=== PATIENT | male | born 1975 | race Caucasian/White ===

== ENCOUNTER → 2021-01-28 12:10 | Outpatient (CLI) | payer BC, SELFPAY ==
[2021-01-29 17:17] LABS: Cancer (Carbohydrate) Ag 19-9 5 U/mL (0-35)
== END ==
PROVIDERS: PCP Physician Assistant Medical; Visit Provider Transplant Surgery
DX: C25.9 Malignant neoplasm of pancreas, unspecified (principal)
CPT/HCPCS: 86301

== ENCOUNTER → 2021-07-10 08:47 | Outpatient (CLI) | payer OTHER, SELFPAY ==
--- NOTE | 2021-07-10 09:45 | DI.CT.S_ITS ---
PROCEDURE: CT CHEST ABD PEL W CON INDICATIONS: Malignant neoplasm of pancreas, unspecified TECHNIQUE: After the administration of oral and intravenous contrast, axial sections acquired from the supraclavicular neck to the pubic symphysis. Coronal and sagittal reformats were performed. For radiation dose reduction, the following was used: automated exposure control, adjustment of mA and/or kV according to patient size. COMPARISON:None. FINDINGS: Image quality: Excellent. CHEST: Lower Neck: No enlarged lymph nodes. Thyroid: Within normal limits. Axillae: No enlarged lymph nodes. Chest Wall: Unremarkable. Lungs and Airways: Occasional tiny left lung subpleural nodules are stable, the largest measures 2.5 mm, ( 3/262). Pleura: Focal pleural thickening along the right diaphragmatic surface with intrinsic dystrophic calcifications is stable. No pneumothorax or pleural effusions. Heart: Heart size is normal. No pericardial effusion. Thoracic Vessels: The aorta and pulmonary arteries demonstrate normal size. Mediastinum and Mary [place]: No enlarged lymph nodes. Small amount of rebound thymic tissue is seen. Esophagus: No wall thickening. No hiatal hernia. ABDOMEN: Liver: No suspicious mass. Gallbladder: Surgically absent. Biliary ducts: No biliary dilatation. Trace left lobe pneumobilia. Pancreas: Prior Whipple procedure. Body and tail of the pancreas are normal. No ductal dilatation. No peripancreatic fluid collections. Spleen: 1.4 cm peripherally hypervascular lesion in the lower pole of the spleen, similar compared to prior studies. Tiny cyst in the upper pole of the spleen. Adrenal Glands: No masses. Kidneys and Ureters: Normal enhancement. No hydronephrosis or mass. Stomach and Bowel: There is been a Whipple procedure. Anastomoses appear normal. No bowel obstructions. Peritoneum: No abnormal intraperitoneal fluid. No free air. Ventral Wall: No hernia. Abdominal Nodes: No retroperitoneal or mesenteric adenopathy by size criteria. Mild abdominal aortic atherosclerotic calcification. Vessels: Aorta and inferior vena cava are normal in size. PELVIS: Pelvic Organs: Unremarkable. Bladder: Unremarkable. Pelvic Nodes: No enlarged lymph nodes. Miscellaneous: Small fat containing inguinal hernias bilaterally. Bones: Unremarkable. IMPRESSION: 1. No progression of metastatic disease. 2. Stable 1.4 cm hypervascular splenic lesion. 3. Very small left lung nodules, probably granulomas, stable. Dictated by: Cecelia Marcano M.D. on 07/13/2021 at 16:55 Approved by: Cecelia Marcano M.D. on 07/13/2021 at 17:18
[2021-07-10 10:40] LABS: Add Manual Diff / Slide Review NO; Basophils Absolute Auto 0 /uL (0-100); Basophils Percent Auto 0.3 % (0-2); Eosinophils Absolute Auto 100 /uL (0-450); Eosinophils Percent Auto 2.6 % (2-4); Hematocrit 39.7 % (41-53); Hemoglobin 13.7 g/dL (13.5-17.5); Lymphocytes Absolute Auto 1400 /uL (1100-4500); Lymphocytes Percent Auto 35.2 % (25-40); Mean Corpuscular HGB Conc 34.4 % (30-36); Mean Corpuscular Hemoglobin 29.6 PG (26-34); Mean Corpuscular Volume 86.1 fL (80-100); Monocytes Absolute Auto 400 /uL (0-900); Monocytes Percent Auto 10.4 % (3-14); Neutrophils Absolute Auto 2000 /uL (1500-7000); Neutrophils Percent Auto 51.5 % (50-75); Platelet Count 186 X10^3/uL (150-400); Red Blood Cell Count 4.62 X10^6/uL (4.5-5.9); Red Cell Distribution Width 13.6 % (11.6-14.8); White Blood Cell Count 3.9 X10^3/uL (4.5-11.0)
[2021-07-10 10:59] LABS: Alanine Aminotransferase 29 IU/L (<50); Albumin 3.9 g/dL (3.5-5.0); Albumin Globulin Ratio 1.7 (1.0-2.8); Alkaline Phosphatase 60 U/L (38-126); Aspartate Aminotransferase 27 IU/L (17-59); Bilirubin Total 0.3 mg/dL (0.2-1.3); Blood Urea Nitrogen 18 mg/dL (9-20); Calcium 8.8 mg/dL (8.4-10.2); Carbon Dioxide 27 mmol/L (22-32); Chloride 104 mmol/L (98-107); Estimated Glomerular Filt Rate > 60.0 mL/min (>60); Globulin 2.3 g/dL (1.7-4.1); Glucose 78 mg/dL (70-100); HEMOLYSIS < 15 (0-50); Potassium 4.3 mmol/L (3.4-5.1); Sodium 138 mmol/L (137-145); Total Protein 6.2 g/dL (6.3-8.2)
[2021-07-11 13:10] LABS: Cancer (Carbohydrate) Ag 19-9 7 U/mL (0-35)
== END ==
PROVIDERS: Referring Provider Transplant Surgery; Visit Provider Transplant Surgery
DX: C25.9 Malignant neoplasm of pancreas, unspecified (principal); R91.8 Other nonspecific abnormal finding of lung field; D73.9 Disease of spleen, unspecified; Z90.49 Acquired absence of other specified parts of digestive tract
CPT/HCPCS: 36415; 71260; 74177; 80053; 85025; 86301

== ENCOUNTER → 2021-08-05 08:24 | Outpatient (CLI) | payer OTHER, SELFPAY ==
[2021-08-05 20:35] LABS: COVID19 - ORCAS (NP or Nasal) Negative (Negative)
== END ==
PROVIDERS: Visit Provider Physician Assistant
DX: J06.9 Acute upper respiratory infection, unspecified (principal)
CPT/HCPCS: U0003

== ENCOUNTER → 2021-10-01 08:06 | Outpatient (CLI) | payer OTHER, SELFPAY ==
[2021-10-01 19:29] LABS: Hemoglobin A1C% w Est Avg Glu 5.5 % (4.0-6.0)
[2021-10-01 19:31] LABS: Cholesterol 236 mg/dL (140-199); HDL Cholesterol 44 mg/dL (40-60); LDL Cholesterol Calculated 172 mg/dL (<100); Triglycerides 100 mg/dL (35-150)
== END ==
PROVIDERS: PCP Physician Assistant
DX: M62.81 Muscle weakness (generalized) (principal)
CPT/HCPCS: 80061; 82306; 83036

== ENCOUNTER → 2022-01-13 13:43 | Outpatient (CLI) | payer OTHER, SELFPAY ==
[2022-01-13 19:36] LABS: Alanine Aminotransferase 106 IU/L (<50); Albumin 4.4 g/dL (3.5-5.0); Albumin Globulin Ratio 1.7 (1.0-2.8); Alkaline Phosphatase 130 U/L (38-126); Aspartate Aminotransferase 41 IU/L (17-59); BUN Creatinine Ratio 24.7 (6-22); Bilirubin Total 0.7 mg/dL (0.2-1.3); Blood Urea Nitrogen 20 mg/dL (9-20); Calcium 9.1 mg/dL (8.4-10.2); Carbon Dioxide 27 mmol/L (22-32); Chloride 104 mmol/L (98-107); Estimated Glomerular Filt Rate > 60 mL/min (>60); Globulin 2.6 g/dL (1.7-4.1); Glucose 107 mg/dL (70-100); HEMOLYSIS < 15 (0-50); Potassium 4.3 mmol/L (3.4-5.1); Sodium 138 mmol/L (137-145)
== END ==
PROVIDERS: PCP Family Medicine; Visit Provider Family Medicine
DX: C25.0 Malignant neoplasm of head of pancreas (principal)
CPT/HCPCS: 80053

== ENCOUNTER → 2022-02-03 12:08 | Outpatient (CLI) | payer OTHER, SELFPAY ==
[2022-02-03 19:44] LABS: Add Manual Diff / Slide Review YES; Hematocrit 37.2 % (41-53); Hemoglobin 12.4 g/dL (13.5-17.5); Mean Corpuscular HGB Conc 33.3 % (30-36); Mean Corpuscular Hemoglobin 29.1 PG (26-34); Mean Corpuscular Volume 87.5 fL (80-100); Platelet Count 674 X10^3/uL (150-400); Red Blood Cell Count 4.25 X10^6/uL (4.5-5.9); Red Cell Distribution Width 15.9 % (11.6-14.8); White Blood Cell Count 15.3 X10^3/uL (4.5-11.0)
[2022-02-03 19:50] LABS: Alanine Aminotransferase 85 IU/L (<50); Albumin 4.2 g/dL (3.5-5.0); Albumin Globulin Ratio 1.8 (1.0-2.8); Alkaline Phosphatase 120 U/L (38-126); Aspartate Aminotransferase 46 IU/L (17-59); BUN Creatinine Ratio 18.9 (6-22); Bilirubin Total 0.3 mg/dL (0.2-1.3); Blood Urea Nitrogen 14 mg/dL (9-20); Calcium 9.4 mg/dL (8.4-10.2); Carbon Dioxide 25 mmol/L (22-32); Chloride 102 mmol/L (98-107); Estimated Glomerular Filt Rate > 60 mL/min (>60); Globulin 2.4 g/dL (1.7-4.1); Glucose 126 mg/dL (70-100); HEMOLYSIS 17 (0-50); Potassium 4.8 mmol/L (3.4-5.1); Sodium 139 mmol/L (137-145); Total Protein 6.6 g/dL (6.3-8.2)
[2022-02-03 20:16] LABS: Anisocytosis 1+; Neutrophils Absolute Manual 10557 /uL (3000-5900); Total Cells Counted 100
== END ==
PROVIDERS: PCP Family Medicine; Visit Provider Internal Medicine Hematology & Oncology
DX: C25.0 Malignant neoplasm of head of pancreas (principal)
CPT/HCPCS: 80053; 85007; 85025

== ENCOUNTER → 2022-02-10 13:36 | Outpatient (CLI) | payer OTHER, SELFPAY ==
[2022-02-10 20:47] LABS: Add Manual Diff / Slide Review NO; Basophils Absolute Auto 0 /uL (0-100); Basophils Percent Auto 0.9 % (0-2); Eosinophils Absolute Auto 100 /uL (0-450); Eosinophils Percent Auto 3.3 % (2-4); Hematocrit 36.6 % (41-53); Hemoglobin 12.3 g/dL (13.5-17.5); Lymphocytes Absolute Auto 1000 /uL (1100-4500); Lymphocytes Percent Auto 27.8 % (25-40); Mean Corpuscular HGB Conc 33.7 % (30-36); Mean Corpuscular Hemoglobin 29.4 PG (26-34); Mean Corpuscular Volume 87.3 fL (80-100); Monocytes Absolute Auto 100 /uL (0-900); Neutrophils Absolute Auto 2500 /uL (1500-7000); Platelet Count 233 X10^3/uL (150-400); Red Blood Cell Count 4.19 X10^6/uL (4.5-5.9); Red Cell Distribution Width 15.6 % (11.6-14.8); White Blood Cell Count 3.7 X10^3/uL (4.5-11.0)
[2022-02-10 20:49] LABS: Alanine Aminotransferase 103 IU/L (<50); Albumin 4.2 g/dL (3.5-5.0); Albumin Globulin Ratio 1.7 (1.0-2.8); Alkaline Phosphatase 89 U/L (38-126); Aspartate Aminotransferase 41 IU/L (17-59); BUN Creatinine Ratio 21.3 (6-22); Bilirubin Total 0.5 mg/dL (0.2-1.3); Blood Urea Nitrogen 19 mg/dL (9-20); Calcium 9.1 mg/dL (8.4-10.2); Carbon Dioxide 28 mmol/L (22-32); Chloride 103 mmol/L (98-107); Estimated Glomerular Filt Rate > 60 mL/min (>60); Globulin 2.5 g/dL (1.7-4.1); Glucose 95 mg/dL (70-100); HEMOLYSIS < 15 (0-50); Potassium 4.4 mmol/L (3.4-5.1); Sodium 140 mmol/L (137-145); Total Protein 6.7 g/dL (6.3-8.2)
== END ==
PROVIDERS: PCP Family Medicine; Visit Provider Internal Medicine Hematology & Oncology
DX: C25.0 Malignant neoplasm of head of pancreas (principal)
CPT/HCPCS: 80053; 85025

== ENCOUNTER → 2022-02-24 12:02 | Outpatient (CLI) | payer OTHER, SELFPAY ==
[2022-02-24 19:39] LABS: Alanine Aminotransferase 66 IU/L (<50); Albumin Globulin Ratio 1.6 (1.0-2.8); Alkaline Phosphatase 101 U/L (38-126); Aspartate Aminotransferase 32 IU/L (17-59); BUN Creatinine Ratio 27.1 (6-22); Bilirubin Total 0.3 mg/dL (0.2-1.3); Blood Urea Nitrogen 19 mg/dL (9-20); Carbon Dioxide 26 mmol/L (22-32); Chloride 103 mmol/L (98-107); Estimated Glomerular Filt Rate > 60 mL/min (>60); Globulin 2.5 g/dL (1.7-4.1); Glucose 102 mg/dL (70-100); HEMOLYSIS 19 (0-50); Potassium 4.6 mmol/L (3.4-5.1); Sodium 138 mmol/L (137-145); Total Protein 6.5 g/dL (6.3-8.2)
[2022-02-24 19:44] LABS: Add Manual Diff / Slide Review NO; Basophils Absolute Auto 0 /uL (0-100); Basophils Percent Auto 0.5 % (0-2); Eosinophils Absolute Auto 300 /uL (0-450); Eosinophils Percent Auto 4.4 % (2-4); Hematocrit 34.3 % (41-53); Hemoglobin 11.6 g/dL (13.5-17.5); Lymphocytes Absolute Auto 1000 /uL (1100-4500); Lymphocytes Percent Auto 16.8 % (25-40); Mean Corpuscular HGB Conc 33.7 % (30-36); Mean Corpuscular Hemoglobin 30.4 PG (26-34); Mean Corpuscular Volume 90.1 fL (80-100); Monocytes Absolute Auto 800 /uL (0-900); Monocytes Percent Auto 13.3 % (3-14); Neutrophils Absolute Auto 3700 /uL (1500-7000); Platelet Count 210 X10^3/uL (150-400); Red Blood Cell Count 3.81 X10^6/uL (4.5-5.9); Red Cell Distribution Width 19.7 % (11.6-14.8); White Blood Cell Count 5.8 X10^3/uL (4.5-11.0)
== END ==
PROVIDERS: PCP Family Medicine; Visit Provider Internal Medicine Hematology & Oncology
DX: C25.0 Malignant neoplasm of head of pancreas (principal)
CPT/HCPCS: 80053; 85025

== ENCOUNTER → 2022-03-03 13:11 | Outpatient (CLI) | payer OTHER, SELFPAY ==
[2022-03-03 19:16] LABS: Hematocrit 37.4 % (41-53); Hemoglobin 12.6 g/dL (13.5-17.5); Mean Corpuscular HGB Conc 33.6 % (30-36); Mean Corpuscular Hemoglobin 30.2 PG (26-34); Mean Corpuscular Volume 89.7 fL (80-100); Platelet Count 469 X10^3/uL (150-400); Red Blood Cell Count 4.17 X10^6/uL (4.5-5.9); Red Cell Distribution Width 19.5 % (11.6-14.8); White Blood Cell Count 11.9 X10^3/uL (4.5-11.0)
[2022-03-03 19:19] LABS: Add Manual Diff / Slide Review YES
[2022-03-03 19:34] LABS: Alanine Aminotransferase 121 IU/L (<50); Albumin 4.3 g/dL (3.5-5.0); Albumin Globulin Ratio 1.7 (1.0-2.8); Alkaline Phosphatase 162 U/L (38-126); Aspartate Aminotransferase 50 IU/L (17-59); BUN Creatinine Ratio 25.6 (6-22); Bilirubin Total 0.3 mg/dL (0.2-1.3); Blood Urea Nitrogen 20 mg/dL (9-20); Calcium 9.4 mg/dL (8.4-10.2); Carbon Dioxide 26 mmol/L (22-32); Chloride 103 mmol/L (98-107); Estimated Glomerular Filt Rate > 60 mL/min (>60); Globulin 2.5 g/dL (1.7-4.1); Glucose 116 mg/dL (70-100); HEMOLYSIS < 15 (0-50); Potassium 4.7 mmol/L (3.4-5.1); Sodium 139 mmol/L (137-145); Total Protein 6.8 g/dL (6.3-8.2)
[2022-03-03 19:53] LABS: Neutrophils Absolute Manual 8806 /uL (3000-5900); Total Cells Counted 100
[2022-03-03 19:54] LABS: RBC Morphology Normal Morphology
== END ==
PROVIDERS: PCP Family Medicine; Visit Provider Internal Medicine Hematology & Oncology
DX: C25.0 Malignant neoplasm of head of pancreas (principal)
CPT/HCPCS: 80053; 85007; 85025

== ENCOUNTER → 2022-03-10 13:39 | Outpatient (CLI) | payer OTHER, SELFPAY ==
[2022-03-10 19:59] LABS: Alanine Aminotransferase 78 IU/L (<50); Albumin 4.2 g/dL (3.5-5.0); Albumin Globulin Ratio 1.8 (1.0-2.8); Alkaline Phosphatase 176 U/L (38-126); Aspartate Aminotransferase 33 IU/L (17-59); Bilirubin Total 0.4 mg/dL (0.2-1.3); Blood Urea Nitrogen 17 mg/dL (9-20); Calcium 8.7 mg/dL (8.4-10.2); Carbon Dioxide 27 mmol/L (22-32); Chloride 103 mmol/L (98-107); Estimated Glomerular Filt Rate > 60 mL/min (>60); Globulin 2.3 g/dL (1.7-4.1); Glucose 88 mg/dL (70-100); HEMOLYSIS < 15 (0-50); Potassium 4.2 mmol/L (3.4-5.1); Sodium 139 mmol/L (137-145); Total Protein 6.5 g/dL (6.3-8.2)
[2022-03-10 20:01] LABS: Hematocrit 34.8 % (41-53); Mean Corpuscular HGB Conc 34.3 % (30-36); Mean Corpuscular Hemoglobin 30.7 PG (26-34); Mean Corpuscular Volume 89.4 fL (80-100); Platelet Count 185 X10^3/uL (150-400); Red Cell Distribution Width 19.2 % (11.6-14.8); White Blood Cell Count 22.8 X10^3/uL (4.5-11.0)
[2022-03-10 20:02] LABS: Add Manual Diff / Slide Review YES
[2022-03-10 20:45] LABS: Anisocytosis 2+; Neutrophils Absolute Manual 20976 /uL (3000-5900); Total Cells Counted 100
== END ==
PROVIDERS: PCP Family Medicine; Visit Provider Internal Medicine Hematology & Oncology
DX: C25.0 Malignant neoplasm of head of pancreas (principal)
CPT/HCPCS: 80053; 85007; 85025

== ENCOUNTER 2022-03-26 14:03 | Emergency (ER) | payer OTHER, SELFPAY ==
[2022-03-26] VITALS (8 sets, daily range): BP systolic 99–105; BP diastolic 64–70; PULSE 74–93; RESP 20; TEMP 36.7–36.9; O2SAT 94–97; BMI 22.6
--- NOTE | 2022-03-26 14:26 | PC.NURSE ---
WEnt to bring pt into triage,he was sitting in his car. I moved on to next pt and registration was going to tell him to come in as he was next.
--- NOTE | 2022-03-26 14:42 | DI.CT.S_ITS ---
PROCEDURE: CT ANGIO CHEST PE PROTOCOL INDICATIONS: concern for PE, known pancreatic ca, pod #4 ex-lap TECHNIQUE: After the administration of intravenous contrast, 2 mm thick sections acquired from the pulmonary apices to the posterior costophrenic angles. 3-dimensional maximum intensity projection (MIP) coronal and sagittal reformats were then acquired through the thorax. For radiation dose reduction, the following was used: automated exposure control, adjustment of mA and/or kV according to patient size. COMPARISON: Outside Film, CT, CT CHEST ABDOMEN PELVIS WITH CONTRAST, 10/07/2021, 11:20. FINDINGS: Image quality: Excellent. Pulmonary arteries: Pulmonary arteries are normal in size, and demonstrate no intraluminal filling defects to suggest central pulmonary embolism. Lungs and pleura: There are subtle patchy areas of ground-glass opacities involving the medial aspect of the bilateral lower lobes, right middle lobe, and bilateral lung apices. No septal thickening or nodularity. A few small subpleural pulmonary nodules are more conspicuous and minimally larger in size. This may be related to differences in imaging technique with 1.0 mm slice thickness on today's study versus 3.0 mm on previous exam. For example subpleural left upper lobe nodule seen on image 96/series 5 measures approximately 2-3 mm and 3-4 mm nodule in the subpleural left lower lobe (image 239/series 5) which previously measured approximately 4 mm but was less conspicuous. No pleural effusions or pneumothorax. Central and peripheral airways are patent. Stable appearance of calcified pleural plaque in the right lung base. Mediastinum: Heart size is normal, without pericardial effusion. No mediastinal or hilar adenopathy. Several scattered mediastinal lymph nodes are more notable for number rather than size and likely reactive in etiology. Thoracic aorta is normal in caliber and enhancement. Esophagus is normal in caliber, without hiatal hernia. Bones and chest wall: No suspicious bony lesions. Ribs and thoracic spine appear intact throughout. Thyroid gland is unremarkable. No axillary or supraclavicular adenopathy. Abdomen: Partially imaged postsurgical changes of prior Whipple procedure. Remainder of the visualized upper abdominal solid organs and bowel loops appear unremarkable. IMPRESSION: 1. Negative for acute pulmonary emboli. No evidence for acute right-sided heart strain. 2. Subtle patchy ill-defined ground-glass opacities involving the bilateral lung apices, right middle lobe, and medial bilateral lower lobes with suspected mildly reactive mediastinal lymph nodes. Findings are likely related to an infectious or inflammatory process. No focal consolidation seen. 3. Slight interval increase in size versus prominence of several small bilateral pulmonary nodules. These have not demonstrated significant increase in size but appear more conspicuous. This may be in part be related to differences in imaging technique. Consider follow-up CT chest in 6-12 months. Other chronic findings as above. Dictated by: Jas Medel M.D. on 03/26/2022 at 15:21 Approved by: Jas Medel M.D. on 03/26/2022 at 15:35
[2022-03-26 15:09] LABS: INR 1.2 (0.9-1.3); Prothrombin Time 13.7 SECONDS (10.1-12.7)
[2022-03-26 15:24] LABS: Lactate (Lactic Acid) 0.7 mmol/L (0.7-2.1)
[2022-03-26 15:24] LABS: Alanine Aminotransferase 71 IU/L (<50); Albumin Globulin Ratio 1.2 (1.0-2.8); Alkaline Phosphatase 158 U/L (38-126); Aspartate Aminotransferase 36 IU/L (17-59); BUN Creatinine Ratio 23.1 (6-22); Bilirubin Total 0.5 mg/dL (0.2-1.3); Blood Urea Nitrogen 18 mg/dL (9-20); Calcium 8.9 mg/dL (8.4-10.2); Carbon Dioxide 26 mmol/L (22-32); Chloride 105 mmol/L (98-107); Estimated Glomerular Filt Rate > 60 mL/min (>60); Globulin 3.3 g/dL (1.7-4.1); Glucose 121 mg/dL (70-100); Potassium 3.9 mmol/L (3.4-5.1); Sodium 138 mmol/L (137-145); Total Protein 7.3 g/dL (6.3-8.2)
[2022-03-26 15:26] LABS: Add Manual Diff / Slide Review NO; Basophils Absolute Auto 0 /uL (0-100); Basophils Percent Auto 0.6 % (0-2); Eosinophils Absolute Auto 200 /uL (0-450); Eosinophils Percent Auto 3.9 % (2-4); Hematocrit 35.1 % (41-53); Hemoglobin 11.6 g/dL (13.5-17.5); Lymphocytes Absolute Auto 800 /uL (1100-4500); Lymphocytes Percent Auto 15.1 % (25-40); Mean Corpuscular Hemoglobin 29.9 PG (26-34); Mean Corpuscular Volume 90.4 fL (80-100); Monocytes Absolute Auto 800 /uL (0-900); Monocytes Percent Auto 16.8 % (3-14); Neutrophils Absolute Auto 3200 /uL (1500-7000); Neutrophils Percent Auto 63.6 % (50-75); Platelet Count 774 X10^3/uL (150-400); Red Blood Cell Count 3.88 X10^6/uL (4.5-5.9); Red Cell Distribution Width 19.1 % (11.6-14.8)
[2022-03-26 15:30] LABS: HEMOLYSIS < 15 (0-50)
[2022-03-26 15:35] LABS: Influenza A - CEPHEID Flu A NEGATIVE (NEGATIVE); Influenza B - CEPHEID Flu B NEGATIVE (NEGATIVE); Respiratory Syncytial Virus Negative (Negative)
[2022-03-26 15:37] LABS: NT-proBNP (BNP-Adult 18+) 60 pg/mL (<125); Troponin I < 0.012 ng/mL (0.01-0.034)
[2022-03-26 15:53] LABS: COVID-19 CEPHEID 4-PLEX PCR Negative (Negative)
[2022-03-26 17:45] LABS: Platelet Estimate Increased on smear; RBC Morphology Normal Morphology
--- NOTE | 2022-03-26 18:50 | ED.GENADULT ---
HPI - General Adult General Chief complaint: Shortness of Breath/Dyspnea Stated complaint: PCP refer need CT pulmonary embolism x4 Time Seen by Provider: 03/26/22 14:42 Source: patient Mode of arrival: Ambulatory History of Present Illness HPI narrative: 46-year-old gentleman with history of pancreatic cancer lives in the [facility] seen by his primary care provider earlier today with shortness of breath, he does have a history of pulmonary emboli in the past so was sent for further evaluation of his dyspnea and concern for pulmonary embolism. Patient is 4 days post exploratory laparoscomy secondary to his cancer diagnosis. Will last 48 hours He has had some dyspnea on exertion when walking but not when lying flat. Some pain at the surgical site with deep breathing but no pleuritic type chest pain. He is not complaining of overt chest pain or palpitations. Has noticed lower extremity edema. Not complaining of headaches. Related Data Previous Rx's Medication Instructions Recorded doxycycline hyclate 100 mg capsule 100 mg PO BID #20 caps 03/26/22 levofloxacin 500 mg tablet 500 mg PO DAILY #10 tabs 03/26/22 Allergies Allergy/AdvReac Type Severity Reaction Status Date / Time No Known Drug Allergies Allergy Verified 03/26/22 14:32 Review of Systems Review of Systems Narrative: Remainder of complete review of systems is otherwise unremarkable except for that included in the HPI. Patient History Medical History (Updated 03/26/22 @ 20:58 by Alfreda Knott MD) Pancreatic cancer Social History Smoking Status: Never smoker Smoking Status: Never smoker alcohol intake frequency: holidays/special occasions only Substance Use Type: does not use Exam Initial Vital Signs Initial Vital Signs: Vital Signs Temperature 98.0 F 03/26/22 14:32 Pulse Rate 93 H 03/26/22 14:32 Respiratory Rate 20 03/26/22 14:32 Blood Pressure 105/70 03/26/22 14:32 Pulse Oximetry 97 03/26/22 14:32 Oxygen Delivery Method 03/26/22 14:32 General: Somewhat thin but overall Healthy appearing, in no acute distress. Able to give a complete and coherent history. Well-nourished well-developed HEENT: Moist mucous membranes, normal sclera with reactive pupils, Neck: No JVD, supple Respiratory: Lungs are clear to auscultation, no wheezing no rales no rhonchi. Full and symmetrical air movement Cardiac: Regular rate and rhythm no murmurs no bruits Abdomen: Soft, nontender, good bowel tones, no flank pain Skin: Slightly pale but otherwise Warm and dry, no rashes Neurologic: Grossly neurologically intact with no obvious asymmetries or abnormalities Extremities: No trauma, well perfused Psych: Cooperative, appropriate insight and affect Course Orders Ordered: ED Orders 03/26/22 14:35 Comprehensive Metabolic Panel Stat Covid-19 + FLU A/B + RSV - PCR Stat NT-proBNP (BNP-Adult 18+) Stat Troponin I Stat EKG-12 Lead Stat Measure peak expiratory flow ONCE RT Consult Eval and Treat NOW 03/26/22 14:42 CT angio chest PE protocol Stat 03/26/22 14:45 Complete Blood Count AUTO DIFF Stat Lactate (Lactic Acid) Stat Prothrombin Time INR Stat Vital Signs Vital signs: Vital Signs - 8 hr 03/26/22 14:32 03/26/22 17:23 03/26/22 18:51 Temperature 98.0 F 98.5 F 98.3 F Pulse Rate 93 H 87 80 Respiratory Rate 20 Blood Pressure 105/70 99/64 Pulse Oximetry 97 96 94 Oxygen Delivery Method Room Air Room Air Medical Decision Making Lab Data Result diagrams: 03/26/22 14:45 03/26/22 14:35 Labs: Lab Results 03/26/22 03/26/22 03/26/22 Range/Units 14:35 14:35 14:45 WBC 5.0 (4.5-11.0) X10^3/uL RBC 3.88 L (4.5-5.9) X10^6/uL Hgb 11.6 L (13.5-17.5) g/dL Hct 35.1 L (41-53) % MCV 90.4 (80-100) fL MCH 29.9 (26-34) PG MCHC 33.0 (30-36) % RDW 19.1 H (11.6-14.8) % Plt Count 774 H (150-400) X10^3/uL Neut % (Auto) 63.6 (50-75) % Lymph % (Auto) 15.1 L (25-40) % Cavalier % (Auto) 16.8 H (3-14) % Eos % (Auto) 3.9 (2-4) % Baso % (Auto) 0.6 (0-2) % Neut # (Auto) 3200 (0634-7311) /uL Lymph # (Auto) 800 L (0358-4940) /uL Cavalier # (Auto) 800 (0-900) /uL Eos # (Auto) 200 (0-450) /uL Baso # (Auto) 0 (0-100) /uL Platelet Estimate Increased on smear RBC Morphology Normal morphology PT (10.1-12.7) SECONDS INR (0.9-1.3) Sodium 138 (137-145) mmol/L Potassium 3.9 (3.4-5.1) mmol/L Chloride 105 (98-107) mmol/L Carbon Dioxide 26 (22-32) mmol/L BUN 18 (9-20) mg/dL Creatinine 0.78 (0.66-1.25) mg/dL Estimated GFR > 60 (>60) mL/min BUN/Creatinine Ratio 23.1 H (6-22) Glucose 121 H (70-100) mg/dL Lactate (0.7-2.1) mmol/L Calcium 8.9 (8.4-10.2) mg/dL Total Bilirubin 0.5 (0.2-1.3) mg/dL AST 36 (17-59) IU/L ALT 71 H (<50) IU/L Alkaline Phosphatase 158 H (38-126) U/L Troponin I < 0.012 (0.01-0.034) ng/mL NT-Pro-B Natriuret Pep 60 (<125) pg/mL Total Protein 7.3 (6.3-8.2) g/dL Albumin 4.0 (3.5-5.0) g/dL Globulin 3.3 (1.7-4.1) g/dL Albumin/Globulin Ratio 1.2 (1.0-2.8) SARS-CoV-2 (PCR) Negative (Negative) Influenza A (RT-PCR) Flu a negative (NEGATIVE) Influenza B (RT-PCR) Flu b negative (NEGATIVE) RSV (PCR) Negative (Negative) 03/26/22 03/26/22 Range/Units 14:45 14:45 WBC (4.5-11.0) X10^3/uL RBC (4.5-5.9) X10^6/uL Hgb (13.5-17.5) g/dL Hct (41-53) % MCV (80-100) fL MCH (26-34) PG MCHC (30-36) % RDW (11.6-14.8) % Plt Count (150-400) X10^3/uL Neut % (Auto) (50-75) % Lymph % (Auto) (25-40) % Cavalier % (Auto) (3-14) % Eos % (Auto) (2-4) % Baso % (Auto) (0-2) % Neut # (Auto) (1383-2419) /uL Lymph # (Auto) (2052-9602) /uL Cavalier # (Auto) (0-900) /uL Eos # (Auto) (0-450) /uL Baso # (Auto) (0-100) /uL Platelet Estimate RBC Morphology PT 13.7 H (10.1-12.7) SECONDS INR 1.2 (0.9-1.3) Sodium (137-145) mmol/L Potassium (3.4-5.1) mmol/L Chloride (98-107) mmol/L Carbon Dioxide (22-32) mmol/L BUN (9-20) mg/dL Creatinine (0.66-1.25) mg/dL Estimated GFR (>60) mL/min BUN/Creatinine Ratio (6-22) Glucose (70-100) mg/dL Lactate 0.7 (0.7-2.1) mmol/L Calcium (8.4-10.2) mg/dL Total Bilirubin (0.2-1.3) mg/dL AST (17-59) IU/L ALT (<50) IU/L Alkaline Phosphatase (38-126) U/L Troponin I (0.01-0.034) ng/mL NT-Pro-B Natriuret Pep (<125) pg/mL Total Protein (6.3-8.2) g/dL Albumin (3.5-5.0) g/dL Globulin (1.7-4.1) g/dL Albumin/Globulin Ratio (1.0-2.8) SARS-CoV-2 (PCR) (Negative) Influenza A (RT-PCR) (NEGATIVE) Influenza B (RT-PCR) (NEGATIVE) RSV (PCR) (Negative) Imaging Data Chest x-ray: Radiologist's Impression: FINDINGS:? ? Surgical changes and devices:? There is a Port-A-Cath on the right with the tip projecting to the area of SVC.? ? Lungs and pleura:? Mild bilateral interstitial infiltrates.? No focal consolidate.? No pleural effusions or pneumothorax.? ? Mediastinum:? Mediastinal contours are normal.? Heart size is normal.? ? Bones and chest wall:? No suspicious bony abnormalities.? Soft tissues appear unremarkable.? ? IMPRESSION:? ? 1. Mild bilateral interstitial infiltrates suggesting interstitial pneumonia.? ? ? Dictated by: Moraima Lagunas M.D. on 03/26/2022 at 11:23 ? ? CT scan - chest: Radiologist's Impression: FINDINGS: ? Image quality:? Excellent.? ? Pulmonary arteries:? Pulmonary arteries are normal in size, and demonstrate no intraluminal filling defects to suggest central pulmonary embolism.? ? ? Lungs and pleura:? There are subtle patchy areas of ground-glass opacities involving the medial aspect of the bilateral lower lobes, right middle lobe, and bilateral lung apices. ?No septal thickening or nodularity.? A few small subpleural pulmonary nodules are more conspicuous and minimally larger in size.? This may be related to differences in imaging technique with 1.0 mm slice thickness on today's study versus 3.0 mm on previous exam.? For example subpleural left upper lobe nodule seen on image 96/series 5 measures approximately 2-3 mm and 3-4 mm nodule in the subpleural left lower lobe (image 239/series 5) which previously measured approximately 4 mm but was less conspicuous.? No pleural effusions or pneumothorax.? Central and peripheral airways are patent.? Stable appearance of calcified pleural plaque in the right lung base.? ? ? Mediastinum:? Heart size is normal, without pericardial effusion.? No mediastinal or hilar adenopathy.? Several scattered mediastinal lymph nodes are more notable for number rather than size and likely reactive in etiology.? Thoracic aorta is normal in caliber and enhancement.? Esophagus is normal in caliber, without hiatal hernia.? ? ? Bones and chest wall:? No suspicious bony lesions.? Ribs and thoracic spine appear intact throughout.? Thyroid gland is unremarkable.? No axillary or supraclavicular adenopathy. ? ? ? Abdomen:? Partially imaged postsurgical changes of prior Whipple procedure. Remainder of the visualized upper abdominal solid organs and bowel loops appear unremarkable.? IMPRESSION:? ? 1. Negative for acute pulmonary emboli.? No evidence for acute right-sided heart strain. ? 2. Subtle patchy ill-defined ground-glass opacities involving the bilateral lung apices, right middle lobe, and medial bilateral lower lobes with suspected mildly reactive mediastinal lymph nodes.? Findings are likely related to an infectious or inflammatory process.? No focal consolidation seen. ? 3. Slight interval increase in size versus prominence of several small bilateral pulmonary nodules.? These have not demonstrated significant increase in size but appear more conspicuous.? This may be in part be related to differences in imaging technique.? Consider follow-up CT chest in 6-12 months. ? Other chronic findings as above. ? ? Dictated by: Jas Medel M.D. on 03/26/2022 at 15:21 ? ? [facility] Narrative Medical decision making narrative: 46-year-old gentleman with history of pancreatic cancer currently post Whipple procedure and 3 months of chemotherapy. Had abdominal laparoscopy 4 days ago with increasing dyspnea since. No fevers. Workup does not show COVID, influenza or respiratory syncytial virus. No evidence of acute electrolyte abnormalities, overwhelming bacterial infection, CT scan does not suggest pulmonary embolism, pericardial abnormalities or cardiomyopathy. He does have subtle patchy ill-defined ground-glass opacities multiple lung harry bilaterally suspicious for an infectious process. His post chemotherapy could also be contributing to this. At this point we will treat him for an atypical pneumonia and because of his chemotherapy will choose slightly broadened options including doxycycline and levofloxacin. There is no sign of overwhelming respiratory failure or sepsis and no need for hospitalization at this time. Will ask him to continue follow-up with his oncologist if he is not improving with the antibiotics may need to look at additional less common sources of exertional dyspnea. All of this is reviewed with patient and his . Questions are answered and they are safe for discharge home Discharge Plan Departure Patient Disposition: Home Clinical Impression: Atypical pneumonia, Pancreatic cancer, Acute dyspnea Instructions: DI for Atypical Pneumonia Activity Restrictions/Additional Instructions: Thank you for coming in today Your workup suggest an atypical pneumonia for which I am going to treat you with doxycycline and levofloxacin. Please make sure you fill the prescriptions and your 1st doses were given in the emergency department The 10 day prescription for both antibiotics has been electronically transmitted to [facility] There was no evidence of pulmonary embolism, severe consolidating bacterial pneumonia, congestive heart failure, acute heart issues, pericardial effusion, cardiomyopathy, acute anemia or sepsis. If you find that symptoms are not significantly improved with the antibiotics, I would talk to your oncologist to see if the chemotherapy that you have been on may cause lung issues and shortness of breath. If you find that you are getting worse or develop any new symptoms, please feel free to return to the emergency department for further evaluation. Prescriptions: New levofloxacin 500 mg tablet 500 mg PO DAILY Qty: 10 0RF doxycycline hyclate 100 mg capsule 100 mg PO BID Qty: 20 0RF Referrals: Rey Kaminski MD [Primary Care Provider] -
--- NOTE | 2022-03-26 19:46 | PC.NURSE ---
Report received - assumed care of pt at this time
--- NOTE | 2022-03-26 20:00 | PC.NURSE ---
Awaiting disposition and results - anxious to leave - family at bedside
[2022-03-26] MEDS: DOXYCYCLINE HYCLATE 100 MG TABLET PO (21:06)
[2022-03-26] MEDS: levoFLOXacin 250 MG TABLET 750 MG PO (21:06)
== END 2022-03-26 21:27 | disposition home or self-care (01) ==
PROVIDERS: Emergency Medicine; Emergency Provider Emergency Medicine; PCP Family Medicine
DX: J18.9 Pneumonia, unspecified organism (principal); R06.00 Dyspnea, unspecified; C25.9 Malignant neoplasm of pancreas, unspecified; Z20.822 Contact with and (suspected) exposure to COVID-19
CPT/HCPCS: 0241U; 71275; 80053; 83605; 83880; 84484; 85025; 85610; 99283; 99284; Q9967

== ENCOUNTER → 2022-05-11 13:25 | Outpatient (CLI) | payer OTHER, SELFPAY ==
[2022-05-11 19:46] LABS: Add Manual Diff / Slide Review NO; Basophils Absolute Auto 0 /uL (0-100); Basophils Percent Auto 0.3 % (0-2); Eosinophils Absolute Auto 0 /uL (0-450); Eosinophils Percent Auto 0.1 % (2-4); Hemoglobin 13.6 g/dL (13.5-17.5); Lymphocytes Absolute Auto 1000 /uL (1100-4500); Lymphocytes Percent Auto 11.1 % (25-40); Mean Corpuscular HGB Conc 33.2 % (30-36); Mean Corpuscular Hemoglobin 28.9 PG (26-34); Mean Corpuscular Volume 87.1 fL (80-100); Monocytes Absolute Auto 500 /uL (0-900); Monocytes Percent Auto 6.2 % (3-14); Neutrophils Absolute Auto 7100 /uL (1500-7000); Neutrophils Percent Auto 82.3 % (50-75); Platelet Count 419 X10^3/uL (150-400); Red Blood Cell Count 4.71 X10^6/uL (4.5-5.9); Red Cell Distribution Width 17.6 % (11.6-14.8); White Blood Cell Count 8.6 X10^3/uL (4.5-11.0)
[2022-05-11 19:51] LABS: Erythrocyte Sedimentation Rate 5 MM/HR (0-15)
[2022-05-11 20:09] LABS: Alanine Aminotransferase 32 IU/L (<50); Albumin 4.3 g/dL (3.5-5.0); Albumin Globulin Ratio 1.7 (1.0-2.8); Alkaline Phosphatase 75 U/L (38-126); Amylase 1030 U/L (30-110); Aspartate Aminotransferase 25 IU/L (17-59); BUN Creatinine Ratio 32.3 (6-22); Bilirubin Total 0.7 mg/dL (0.2-1.3); Blood Urea Nitrogen 21 mg/dL (9-20); Calcium 9.5 mg/dL (8.4-10.2); Carbon Dioxide 25 mmol/L (22-32); Chloride 102 mmol/L (98-107); Estimated Glomerular Filt Rate > 60 mL/min (>60); Globulin 2.5 g/dL (1.7-4.1); Glucose 101 mg/dL (70-100); HEMOLYSIS < 15 (0-50); Potassium 4.4 mmol/L (3.4-5.1); Sodium 137 mmol/L (137-145); Total Protein 6.8 g/dL (6.3-8.2)
[2022-05-11 20:33] LABS: Lipase 13605 U/L (23-300)
== END ==
PROVIDERS: PCP Family Medicine; Visit Provider Family Medicine
DX: C25.9 Malignant neoplasm of pancreas, unspecified (principal); R10.13 Epigastric pain
CPT/HCPCS: 80053; 82150; 83690; 85025; 85651